=== PATIENT | male | born 1995 | race Asian ===

== ENCOUNTER 2024-04-20 09:50 | Outpatient (CLI) | payer BC ==
[2024-04-20] MEDS ORDERED: Iopamidol 370 76% 100 ML VIAL ONE (09:58)
== END 2024-04-20 09:51 | disposition home or self-care (01) ==
LOC: CSHCT 09:50
PROVIDERS: ATTEND Internal Medicine Cardiovascular Disease
DX: K76.9 Liver disease, unspecified (principal)
CPT/HCPCS: 74170; Q9967